=== PATIENT | male | born 1930 | race Caucasian/White ===

== ENCOUNTER → 2018-05-14 | Outpatient (CLI) | payer MEDICARE, OTHER ==
[~2018-05-14] MED LIST: ALBU3IS INH; ALBU90OI INH; ALLO100 PO; ALLO300 PO; AMLO10 PO; ASCO500 PO; ATEN25; ATEN50 PO; CALC.25 PO; CALC1.25T PO; CALCA500CH PO; CEPH500 PO; CHOL10002 PO; CIPR500 PO; COLC.6 PO; Calcium + Vita1 EACH PO; ERGO400 PO; FEBU40TA; FERR325 PO; FOLI1 PO; FURO20 PO; HYDACE5 PO; HYDACE7.5 PO; HYDR1TAB94 PO; IBUP600 PO; INDO25 PO; INDO75CR PO; LISHYD2012 PO; LISI20; LISI20 PO; LOSA50 PO; MAGCHL64ER PO; MAGN84 PO; METR500 PO; METTREX2.5 PO; Micro-K10 MEQ PO; NAPR250; NAPR500 PO; NIFE30ER; NIFE30ER PO; NIFE60ER PO; NITR.4SL; NITR.4SL SL; NITR.6SL SL; OMEP20ER; OMEP20ER PO; OXYACE5T PO; PANT40 PO; POTCHL10ER PO; Percocet 5-3251 EACH PO; SIMV20; SIMV20 PO; SULTRIDS PO; TUMS X-STR300 MG PO; Tylenol325 MG PO; VICODIN 5-3001 EACH PO; Zovirax800 MG PO; [UNRECOGNIZED DRUG - REMARK]
== END | disposition home or self-care (01) ==
LOC: LAB SHORT 07:59 → PLD 07:59
DX: D04.5 Carcinoma in situ of skin of trunk (principal)
CPT/HCPCS: 88305